=== PATIENT | female | born 1940 | race Caucasian/White ===

== ENCOUNTER 2022-12-03 07:48 | Day surgery (SDC) | payer MEDICARE ==
[2022-12-03] VITALS (15 sets, daily range): BP systolic 103–132; BP diastolic 48–79; PULSE 60–72; RESP 16–17; TEMP 97.8; O2SAT 93–100
[~2022-12-03] VITALS: Ht 162.6 cm; Wt 81.3 kg
[~2022-12-03 07:48] MED LIST: ACET-896 PO; ASPI-611 PO; ATEN50TA PO; CALC300T4 PO; CHOL2000 PO; DABI150C PO; FURO-150 PO; LETR2.5T23 PO; LEVO125T8 PO; PRAV40TA3 PO; RANI300T7 PO; TETR15DR26 OP
[2022-12-03] MEDS ORDERED: LOSA100T58 PO (08:24)
[2022-12-03] MEDS ORDERED: AMLO5TAB16 PO (08:24)
[2022-12-03] MEDS ORDERED: ACET-3414 PO (08:24)
[2022-12-03] MEDS ORDERED: ALBU18HF2 INH (08:24)
[2022-12-03] MEDS ORDERED: METO-411 PO (08:24)
[2022-12-03] MEDS ORDERED: RIVA20TA PO (08:24)
[2022-12-03] MEDS ORDERED: FAMO40TA58 PO (08:24)
[2022-12-03] MEDS ORDERED: DENO60DI SUBCUT (08:24)
[2022-12-03] MEDS ORDERED: POTA-366 PO (08:24)
[2022-12-03 08:52] LABS: BASOPHILS # (AUTO) 0.1 X10'3 (0-0.2); BASOPHILS % (AUTO) 1.5 % (0-1); EOSINOPHILS # (AUTO) 0.1 X10'3 (0-0.9); EOSINOPHILS % (AUTO) 2.8 % (0-6); HEMATOCRIT 40.5 % (35.0-45.0); HEMOGLOBIN 13.6 g/dl (12.0-16.0); LYMPHOCYTES # (AUTO) 0.6 X10'3 (1.1-4.8); LYMPHOCYTES % (AUTO) 11.9 % (21-51); MEAN CORPUSCULAR HEMOGLOBIN 30.7 PG (27.0-31.0); MEAN CORPUSCULAR HGB CONC 33.6 g/dL (33.0-36.5); MEAN CORPUSCULAR VOLUME 91.4 FL (78-98); MEAN PLATELET VOLUME 7.2 FL (7.4-10.4); MONOCYTES # (AUTO) 0.6 X10'3 (0-0.9); MONOCYTES % (AUTO) 12.7 % (2-12); NEUTROPHILS # (AUTO) 3.5 X10'3 (1.8-7.7); NEUTROPHILS % (AUTO) 71.1 % (42-75); PLATELET COUNT 191 X10'3 (140-440); RED BLOOD COUNT 4.43 X10'6 (4.20-5.60); RED CELL DISTRIBUTION WIDTH 14.8 % (11.5-14.5); WHITE BLOOD COUNT 4.9 X10'3 (4.5-11.0)
[2022-12-03 09:01] LABS: ALBUMIN 3.9 G/DL (3.4-5.0); ANION GAP 9 (8-16); BLOOD UREA NITROGEN 21 MG/DL (7-18); BUN/CREATININE RATIO 17.8 (10.0-20.0); CALCIUM 9.5 MG/DL (8.5-10.1); CHLORIDE 103 MMOL/L (99-107); CREATININE 1.18 MG/DL (0.40-0.90); GLUCOSE 103 MG/DL (70-104); POTASSIUM 4.1 MMOL/L (3.5-5.1); SODIUM 137 MMOL/L (135-145); TOTAL CARBON DIOXIDE 24.8 MMOL/L (24-32); eCRCL 32 ML/MIN; eGFR 44 ML/MIN
[2022-12-03] MEDS ORDERED: normal saline 1000ml 1,000 ML IV SCH (09:45)
[2022-12-03] MEDS ORDERED: phentolamine (Regitine) 5mg inj IV PRN (09:50)
[2022-12-03] MEDS ORDERED: midazolam 1 mg/ML 2ml injection ONE (10:04)
[2022-12-03] MEDS ORDERED: fentaNYL/PF 50MCG/1 ML 2ML syringe ONE (10:04)
== END 2022-12-03 13:45 | disposition home or self-care (01) ==
LOC: SSTAY O 07:48
PROVIDERS: ATTEND Radiology Diagnostic Radiology
DX: E27.8 Other specified disorders of adrenal gland (principal); C50.919 Malignant neoplasm of unspecified site of unspecified female breast; I48.91 Unspecified atrial fibrillation; I10 Essential (primary) hypertension; E78.00 Pure hypercholesterolemia, unspecified; E03.9 Hypothyroidism, unspecified; Z91.040 Latex allergy status; Z79.899 Other long term (current) drug therapy
CPT/HCPCS: 36415; 49180; 77012; 80048; 85025; J2250; J3010; J7030; 50200; 88173; 88305; A4615